=== PATIENT | female | born 1950 | race Caucasian/White ===

== ENCOUNTER 2024-02-29 16:27 | Inpatient (IN) ==
[2024-02-29] MEDS: EPINEPHrine INJ 1 MG/ML AMP IM STA (16:27)
--- NOTE | 2024-02-29 16:36 | Emergency Department Note ---
Impression & Plan Anaphylaxis ED Provider Note NAME: SHANNA KAN AGE: 73 SEX: F : 1950 ARRIVES VIA: Ambulance INFORMANT: Patient ED PROVIDER(S): Deepak Varma DO CHIEF COMPLAINT: Trouble breathing/swallowing HPI: Patient is a 73-year-old female who presents to the ER who presents to the ER for swelling in the back of the throat. Patient was eating oysters around 330. Following this face became red and edematous and swelling in the back of the throat. She notes she is having trouble swallowing and talking. She can feel the swelling in her throat. She also admits that she has a rash on her face. She admits to swelling of her bilateral eyes and cheeks. She received 125 Solu-Medrol, 50 of Benadryl as well as 2 doses of IM epinephrine. She notes it has improved slightly. She denies any headache or change in vision. No chest pain or shortness of breath. No belly pain, nausea vomiting or diarrhea. No dysuria urgency or frequency. No other exacerbating or remitting factors. ADDITIONAL HISTORY OBTAINED: Per HPI Chronic Medical/Social Conditions Affecting Care: Per HPI PAST MEDICAL HISTORY:See Below PAST SURGICAL HISTORY:See Below FAMILY HISTORY:See Below SOCIAL HISTORY:See Below HOME MEDICATIONS:See Below ALLERGIES:See Below VITALS:See Below PHYSICAL EXAMINATION: GENERAL: Sitting up in bed, alert, in moderate distress having trouble talking FACE: Erythema of the bilateral eyes in combination with erythema throughout her face and neck EYE EXAM: normal conjunctiva. PERRL and EOM's grossly intact. OROPHARYNX: no exudate, no erythema, lips, watery edema in the posterior pharynx including the soft palate with a hoarse voice NECK: supple, no nuchal rigidity, no adenopathy, non-tender, no stridor LUNGS: Clear to auscultation. Normal chest wall mechanics HEART: no murmurs, S1 normal and S2 normal ABDOMEN: abdomen soft, non-tender, normo-active bowel sounds, no masses, no rebound or guarding. UPPER EXTREMITIES: upper extremities are grossly normal. LOWER EXTREMITIES: No pitting edema. NEURO EXAM: Normal sensorium, cranial nerves II-XII grossly intact, normal speech, no gross weakness of arms, no gross weakness of legs. MEDICAL DECISION MAKING: Patient is a 73-year-old female who presents to the ER with past medical history of hyperlipidemia and diabetes for trouble breathing swallowing and talking. She had an oyster around 330 and this occurred. She received 2 separate doses of IM epinephrine prior to arrival in combination with 125 Solu-Medrol and 50 of Benadryl which was given orally. Upon my evaluation she was still having trouble breathing and talking and had a noticeably hoarse voice with a fair amount of edema in the posterior soft palate. Additional IM epinephrine was given and the rash on the face improved slightly. Following this she was started on IV epinephrine drip. Patient was also given racemic epinephrine as well as 10 of Decadron and IV Benadryl in combination with Pepcid. After close monitoring her symptoms gradually improved and resolved. She was titrated down to half dose of her epinephrine and this was eventually titrated off. She was monitored closely in B1. She was discussed with the hospitalist as well as the business manager and will be admitted for observation. She had normal phonation upon admission with resolution of the rash on the face and chest but still has some mild watery edema in the posterior pharynx Consults/Care Managements Discussions: Per [facility] Triage Nursing notes reviewed. Limited review of prior medical records performed Vital Signs: reviewed and remarkable for no significant abnormalities Differential diagnosis: Allergic reaction, anaphylaxis, urticaria, [place]-Ousmane syndrome, toxic epidermal necrolysis, erythema multiforme, contact dermatitis, cellulitis, as well as other pathologies. ER treatment provided: See below Diagnostics interpreted by me include EKG and cardiac monitoring as listed below: -Cardiac Monitoring: An order was placed for continuous cardiac monitoring. The monitor shows a rate of 101 with sinus rhythm. -ECG: Sinus rhythm rate of 99 Left axis No PVCs QTc 477 -Laboratory studies:Interpreted by me as stated above in MDM and shown below. Imaging studies: Xrays: As interpreted by me: Portable AP upright 1 view of the chest shows no focal infiltrate CTs show: none Procedures:none Critical Care: I have personally spent 75 minutes of critical care time in the direct management of this patient. This includes bedside care, interpretation of diagnostic studies, and testing, discussion with consultants, patient, and family members, and other required patient management activities. This 75 minutes is in excess of all separately billable procedures. 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 Beliefs That Will Affect Care: None Current Living Situation: Alone Other Information That Helps Us Care for You: No Feels Safe at Home: Yes Safety Concerns: Feels Safe At This Time Assistive Devices: Glasses Allergies Allergies Allergy/AdvReac Type Severity Reaction Status Date / Time oyster extract Allergy Severe Anaphylaxis Verified 02/29/24 17:25 dicyclomine AdvReac Unknown Abdominal Verified 02/29/24 17:25 Pain minocycline AdvReac Unknown Headache Verified 02/29/24 17:25 omeprazole [From Prilosec] AdvReac Unknown Unknown Verified 02/29/24 17:25 venlafaxine [From Effexor] AdvReac Unknown Palpitation Verified 02/29/24 18:13 s Home Meds Home Medications Medication Instructions Recorded Confirmed cholecalciferol (vitamin D3) 50 50 mcg PO DAILY 02/29/24 02/29/24 mcg (2,000 unit) tablet (Vitamin D3) cholecalciferol (vitamin D3) 50 50 mcg PO DAILY 02/29/24 02/29/24 mcg (2,000 unit) tablet (Vitamin D3) citalopram 20 mg tablet 20 mg PO DAILY 02/29/24 02/29/24 coQ10 (ubiquinol) 200 mg capsule 200 mg PO DAILY 02/29/24 02/29/24 coenzyme Q10 100 mg capsule (Co 100 mg PO DAILY 02/29/24 02/29/24 Q-10) gabapentin 100 mg capsule 100 mg PO HS 02/29/24 02/29/24 gabapentin 100 mg capsule 100 mg PO HS 02/29/24 02/29/24 metformin 500 mg tablet,extended 500 mg PO DAILY 02/29/24 02/29/24 release 24 hr multivitamin 1 tab PO DAILY 02/29/24 02/29/24 multivitamin (Multiple Vitamins 1 tab PO DAILY 02/29/24 02/29/24 tablet) simvastatin 20 mg tablet 20 mg PO HS 02/29/24 02/29/24 vitamin A-vitamin C-vitamin E 1 tab PO HS 02/29/24 02/29/24 Results & Data (ED) Vital Signs Vital Signs - 24 hr 02/29/24 16:39 02/29/24 16:39 02/29/24 16:49 Pulse Rate 94 H 98 H Pulse Rate [Apical] Pulse Rhythm [Apical] Pulse Strength [Apical] Respiratory Rate 14 Respiratory Effort / Characteristics Short of Breath Respiratory Depth Normal Respiratory Pattern Regular Blood Pressure 154/83 H Blood Pressure [Right Arm] Blood Pressure Mean 106 Blood Pressure Mean [Right Arm] Blood Pressure Position [Right Arm] Pulse Oximetry 100 Oxygen Delivery Method Room Air Oxygen Flow Rate Sepsis Recent Fever Within 48 Hours No Sepsis New/Unexplained Change in Mental Status No Sepsis Action Taken by Nursing No Action Required 02/29/24 16:52 02/29/24 16:57 02/29/24 17:01 Pulse Rate Pulse Rate [Apical] 101 H 99 H 99 H Pulse Rhythm [Apical] Regular Regular Pulse Strength [Apical] Normal Respiratory Rate 20 19 20 Respiratory Effort / Characteristics Spontaneous Non-Labored Spontaneous Spontaneous Respiratory Depth Normal Normal Respiratory Pattern Regular Regular Blood Pressure Blood Pressure [Right Arm] 164/76 H 166/76 H Blood Pressure Mean Blood Pressure Mean [Right Arm] 105 106 Blood Pressure Position [Right Arm] Pulse Oximetry 100 99 100 Oxygen Delivery Method Nebulizer Room Air Nebulizer Oxygen Flow Rate 7 7 Sepsis Recent Fever Within 48 Hours Sepsis New/Unexplained Change in Mental Status Sepsis Action Taken by Nursing 02/29/24 17:06 02/29/24 17:11 02/29/24 17:17 Pulse Rate Pulse Rate [Apical] 95 H 98 H 97 H Pulse Rhythm [Apical] Regular Regular Regular Pulse Strength [Apical] Normal Normal Normal Respiratory Rate 19 20 18 Respiratory Effort / Characteristics Non-Labored Spontaneous Non-Labored Spontaneous Non-Labored Spontaneous Respiratory Depth Normal Normal Normal Respiratory Pattern Regular Regular Regular Blood Pressure Blood Pressure [Right Arm] 157/74 H 148/77 H 151/74 H Blood Pressure Mean Blood Pressure Mean [Right Arm] 101 100 99 Blood Pressure Position [Right Arm] Pulse Oximetry 100 100 100 Oxygen Delivery Method Nebulizer Nebulizer Nebulizer Oxygen Flow Rate 7 7 7 Sepsis Recent Fever Within 48 Hours Sepsis New/Unexplained Change in Mental Status Sepsis Action Taken by Nursing 02/29/24 17:20 02/29/24 17:25 02/29/24 17:30 Pulse Rate Pulse Rate [Apical] 95 H 95 H 99 H Pulse Rhythm [Apical] Regular Pulse Strength [Apical] Normal Respiratory Rate 18 16 18 Respiratory Effort / Characteristics Non-Labored Spontaneous Non-Labored Spontaneous Non-Labored Spontaneous Respiratory Depth Normal Normal Normal Respiratory Pattern Regular Regular Blood Pressure Blood Pressure [Right Arm] 139/71 141/69 H 131/67 Blood Pressure Mean Blood Pressure Mean [Right Arm] 93 93 88 Blood Pressure Position [Right Arm] Pulse Oximetry 100 100 100 Oxygen Delivery Method Nebulizer Nebulizer Nebulizer Oxygen Flow Rate 7 7 7 Sepsis Recent Fever Within 48 Hours Sepsis New/Unexplained Change in Mental Status Sepsis Action Taken by Nursing 02/29/24 17:35 02/29/24 17:40 02/29/24 17:46 Pulse Rate Pulse Rate [Apical] 100 H 98 H 101 H Pulse Rhythm [Apical] Pulse Strength [Apical] Respiratory Rate 16 16 18 Respiratory Effort / Characteristics Non-Labored Spontaneous Non-Labored Spontaneous Non-Labored Spontaneous Respiratory Depth Normal Normal Normal Respiratory Pattern Regular Blood Pressure Blood Pressure [Right Arm] 141/73 H 123/66 136/73 Blood Pressure Mean Blood Pressure Mean [Right Arm] 95 85 94 Blood Pressure Position [Right Arm] Lying Sitting Pulse Oximetry 100 100 100 Oxygen Delivery Method Room Air Room Air Nebulizer Oxygen Flow Rate 7 Sepsis Recent Fever Within 48 Hours Sepsis New/Unexplained Change in Mental Status Sepsis Action Taken by Nursing 02/29/24 18:10 Pulse Rate Pulse Rate [Apical] 101 H Pulse Rhythm [Apical] Regular Pulse Strength [Apical] Respiratory Rate 18 Respiratory Effort / Characteristics Non-Labored Spontaneous Respiratory Depth Normal Respiratory Pattern Regular Blood Pressure Blood Pressure [Right Arm] 138/74 Blood Pressure Mean Blood Pressure Mean [Right Arm] 95 Blood Pressure Position [Right Arm] Pulse Oximetry 99 Oxygen Delivery Method Room Air Oxygen Flow Rate Sepsis Recent Fever Within 48 Hours Sepsis New/Unexplained Change in Mental Status Sepsis Action Taken by Nursing Laboratory Data 02/29/24 16:30 02/29/24 16:30 Lab Results 02/29/24 Range/Units 16:30 WBC 9.56 (4.8-10.8) K/ul RBC 4.64 (4.20-5.40) M/uL Hgb 14.3 (12.0-16.0) g/dl Hct 42.6 (37.0-47.0) % MCV 91.8 (80.0-100.0) fL MCH 30.8 (25.0-34.0) pg MCHC 33.6 (32.0-36.0) g/dL RDW Std Deviation 46.5 H (36.4-46.3) fL RDW Coeff of Perico 13.7 (11.5-14.5) % Plt Count 290 (130-400) K/uL MPV 9.6 (9.4-12.4) fL Neutrophils % (Manual) 43 % Lymphocytes % (Manual) 49 % Monocytes % (Manual) 6 % Eosinophils % (Manual) 1 % Basophils % (Manual) 1 % Neutrophils # (Manual) 4.11 (1.40-6.50) K/uL Total Absolute Neuts 4.11 (1.4-6.5) K/uL Lymphocytes # (Manual) 4.68 H (1.2-3.4) K/uL Total Abs Lymphocytes 4.68 H (1.2-3.4) K/uL Monocytes # (Manual) 0.57 (0.11-0.59) K/uL Eosinophils # (Manual) 0.10 (0-0.50) K/uL Basophils # (Manual) 0.10 (0-0.2) K/uL RBC Morphology Unremarkable Sodium 137 (136-145) mmol/L Potassium 3.4 L (3.5-5.1) mmol/L Chloride 100 (98-107) mmol/L Carbon Dioxide 27 (21-32) mmol/L Anion Gap 10 (3-11) BUN 44 H (6-23) mg/dl Creatinine 1.01 (0.6-1.2) mg/dl Est Cr Clr Drug Dosing 46.0 ml/min eGFR 58.42 BUN/Creatinine Ratio 43.6 H (10-20) Glucose 170 H (70-99(Fasting)) mg/dl Calcium 9.7 (8.6-10.3) mg/dl Total Bilirubin 0.4 (0.2-1.0) mg/dl AST 24 (13-39) U/L ALT 15 (7-52) U/L Alkaline Phosphatase 47 (34-104) U/L Troponin I High Sens 3.3 (0-14) pg/ml Total Protein 6.9 (6.0-8.3) gm/dl Albumin 4.4 (3.4-5.0) gm/dl Globulin 2.5 (2.5-4.0) gm/dl Albumin/Globulin Ratio 1.8 (0.9-2) Lipase 45 (11-82) U/L Administered Medications Albuterol (Albuterol 0.083% Nebu Soln 3 Ml Vial) 2.5 mg NEB Q6R MEREDITH; Protocol Stop: 03/30/24 20:29 Last Admin: 02/29/24 20:20 Dose: 2.5 mg Documented By: LGB Diphenhydramine HCl (Diphenhydramine 50 Mg/Ml Vial) 25 mg IV Q6H PRN PRN Reason: hives Stop: 03/30/24 17:58 Last Admin: 02/29/24 19:43 Dose: 25 mg Documented By: CP Gabapentin (Gabapentin 100 Mg Cap) 100 mg PO HS MEREDITH Stop: 03/30/24 20:59 Last Admin: 02/29/24 20:39 Dose: 100 mg Documented By: CP Heparin Sodium (Porcine) (Heparin Sod 5,000 Unit/0.5 Ml Vial) 5,000 units SQ Q12 MEREDITH Stop: 03/30/24 20:59 Last Admin: 02/29/24 20:46 Dose: 5,000 units Documented By: CP Famotidine (Pepcid 20mg Iv Push) 20 mg in 5 mls @ 2.5 mls/min IV Q12H MEREDITH Stop: 03/30/24 18:29 Last Admin: 02/29/24 18:27 Dose: 2.5 mls/min Documented By: NA Potassium Chloride/Sodium Chloride (Normal Saline W/20 Meq Kcl) 20 meq in 1,000 mls @ 100 mls/hr IV .Q10H MEREDITH Stop: 03/02/24 00:29 Last Admin: 02/29/24 18:40 Dose: 100 mls/hr Documented By: NA Simvastatin (Simvastatin 20 Mg Tab) 20 mg PO HS MEREDITH Stop: 03/30/24 20:59 Last Admin: 02/29/24 20:40 Dose: 20 mg Documented By: CP Discontinued Medications Albuterol (Albuterol 0.083% Nebu Soln 3 Ml Vial) 5 mg NEB NOW STA; Protocol Stop: 02/29/24 16:36 Last Admin: 02/29/24 16:47 Dose: 5 mg Documented By: NA Dexamethasone Sodium Phosphate (DexamethasonePf 10 Mg/Ml Vial) 10 mg IV NOW ONE Stop: 02/29/24 16:33 Last Admin: 02/29/24 16:43 Dose: 10 mg Documented By: NA Diphenhydramine HCl (Diphenhydramine 50 Mg/Ml Vial) 12.5 mg IV NOW STA Stop: 02/29/24 16:35 Last Admin: 02/29/24 16:43 Dose: 12.5 mg Documented By: NIGHAT Epinephrine (Racepinephrine 2.25% Nebu Soln 0.5 Ml Vial) 0.5 ml NEB NOW STA Stop: 02/29/24 16:37 Last Admin: 02/29/24 16:51 Dose: 0.5 ml Documented By: NIGHAT Epinephrine HCl (Epinephrine Inj 1 Mg/Ml Amp) 0.3 mg IM NOW STA Stop: 02/29/24 16:36 Last Admin: 02/29/24 16:27 Dose: 0.3 mg Documented By: NIGHAT Famotidine (Pepcid 20mg Iv Push) 20 mg in 5 mls @ 2.5 mls/min IV NOW STA Stop: 02/29/24 16:33 Last Admin: 02/29/24 16:47 Dose: 2.5 mls/min Documented By: NIGHAT Epinephrine HCl () 4 mg in 254 mls @ 26.861 mls/hr IV .Q9H28M [facility]; Protocol Stop: 03/30/24 16:59 Last Titration: 02/29/24 20:24 Dose: Infused Documented By: Titration: 02/29/24 17:38 Dose: 0 mcg/kg/min, 0 mls/hr Documented By: Titration: 02/29/24 17:15 Dose: 0.05 mcg/kg/min, 13.4 mls/hr Documented By: Admin: 02/29/24 16:42 Dose: 0.1 mcg/kg/min, 26.9 mls/hr Documented By: NIGHAT Co-signed By: BRE Influenza Virus Vacc Triv Types A&B (Influenza Vacc So2173-75(65y+)/Pf (Iiv3) 0.5ml Syr) 0.5 ml IM .ONCE ONE Stop: 02/29/24 20:01 Last Admin: 02/29/24 20:24 Dose: Not Given Documented By: CP Imaging Data Radiologist's Impression: Chest X-Ray 02/29/24 16:34 XR chest 1V portable CLINICAL HISTORY: Chest pain, nonspecific TECHNIQUE: Single frontal radiograph of the chest was obtained. Comparison: None available at the time of this dictation. FINDINGS: No lines and tubes are seen. Calcified aortic knob is seen. The lungs are clear. No evidence of pleural effusion or pneumothorax. IMPRESSION: No acute chest disease. ACT 112: Negative or not required by law. Electronically signed by: Channing Arriaza M.D. 02/29/2024 5:06 PM Discharge Plan Visit Data Chief Complaint: Allergic Reaction ED Provider: Deepak Varma Discharge Problem: Anaphylaxis Patient Disposition: Admitted As Inpatient Discharge Instructions Interventions: ED Discharge Assessment Last Done: 02/29/24 19:13 Discharge Problem: Anaphylaxis Qualifiers: Encounter type: initial encounter Qualified Code(s): T78.2XXA - Anaphylactic shock, unspecified, initial encounter
[2024-02-29] MEDS: Standard Conc; 4 MG in 250 mL for HYPOTENSION IV SCH (16:42)
[2024-02-29] MEDS: diphenhydrAMINE 50 MG/ML VIAL IV STA (16:43)
[2024-02-29] MEDS: dexAMETHasone**PF** 10 MG/ML VIAL IV ONE (16:43)
[2024-02-29] MEDS: FAMOTIDINE 20MG IV PUSH 20 MG/5 ML SYR IV STA (16:47)
[2024-02-29] MEDS: ALBUTEROL 0.083% NEBU SOLN 3 ML VIAL NEB STA (16:47)
[2024-02-29] MEDS: RACEPINEPHRINE 2.25% NEBU SOLN 0.5 ML VIAL NEB STA (16:51)
[2024-02-29 16:57] LABS: Hematocrit (blood only) 42.6 % (37.0-47.0); Hemoglobin 14.3 g/dl (12.0-16.0); Mean Corpuscular Hemoglobin 30.8 pg (25.0-34.0); Mean Corpuscular Hgb Conc 33.6 g/dL (32.0-36.0); Mean Corpuscular Volume 91.8 fL (80.0-100.0); Mean Platelet Volume 9.6 fL (9.4-12.4); Platelet Count 290 K/uL (130-400); RDW Coefficient of Variation 13.7 % (11.5-14.5); RDW Standard Deviation 46.5 fL (36.4-46.3); Red Blood Count 4.64 M/uL (4.20-5.40); White Blood Count 9.56 K/ul (4.8-10.8)
--- NOTE | 2024-02-29 17:07 | XRay Report ---
XR chest 1V portable CLINICAL HISTORY: Chest pain, nonspecific TECHNIQUE: Single frontal radiograph of the chest was obtained. Comparison: None available at the time of this dictation. FINDINGS: No lines and tubes are seen. Calcified aortic knob is seen. The lungs are clear. No evidence of pleur al effusion or pneumothorax. IMPRESSION: No acute chest disease. ACT 112: Negative or not required by law. Electronically signed by: Channing Arriaza M.D. 02/29/2024 5:06 PM
[2024-02-29 17:16] LABS: Albumin Globulin Ratio 1.8 (0.9-2); Albumin Level 4.4 gm/dl (3.4-5.0); BUN Creatinine Ratio 43.6 (10-20); Bilirubin,Total 0.4 mg/dl (0.2-1.0); Calcium 9.7 mg/dl (8.6-10.3); Globulin 2.5 gm/dl (2.5-4.0); Potassium 3.4 mmol/L (3.5-5.1); Total Protein 6.9 gm/dl (6.0-8.3)
[2024-02-29 17:21] LABS: Troponin I High Sensitivity 3.3 pg/ml (0-14)
[2024-02-29 17:47] LABS: ALC (manual) 4.68 K/uL (1.2-3.4); ANC (manual) 4.11 K/uL (1.4-6.5); Basophils % (manual) 1 %; Eosinophils % (manual) 1 %; Lymphocytes # (manual) 4.68 K/uL (1.2-3.4); Lymphocytes % (manual) 49 %; Monocytes # (manual) 0.57 K/uL (0.11-0.59); Monocytes % (manual) 6 %; Neutrophils # (manual) 4.11 K/uL (1.40-6.50); Neutrophils % (manual) 43 %; RBC Morphology Unremarkable
[2024-02-29] MEDS ORDERED: ALBUTEROL 0.083% NEBU SOLN 3 ML VIAL NEB PRN (17:59)
--- NOTE | 2024-02-29 18:17 | History & Physical Report ---
Date of Service February 29, 2024 Assessment & Plan (1) Anaphylaxis: Plan: Anaphylaxis due to oyster consumption Admitted with throat swelling, swelling of the whole face and difficulty with breathing Required multiple doses of IM epinephrine and also Epinephrine drip, intravenous steroid and Benadryl to improve the situation Condition improved while in the emergency room and Epinephrine drip was discontinued after about 30 minutes Will admit the patient to ICU for observation Received a total of Solu-Medrol 125 mg x 2 and Decadron 10 mg x 1 intravenously. Will continue with IV Benadryl as needed, intravenous famotidine and nebulized bronchodilator for now She will likely be transferred out of ICU tomorrow morning (2) Hyperlipidemia: Plan: Continue statin (3) Depression: Plan: Continue Celexa (4) Sleep apnea: Plan: History of sleep apnea and does not use any CPAP and BiPAP She is not sure whether she has CLL or not White count is normal Plan DVT prophylaxis Subcu heparin CODE STATUS Full Total time spent in patient care including communication with the Family members,occupational safety specialist and ER physician. History of Present Illness Chief Complaint: Anaphylaxis secondary to moisture extract with shortness of breath, generalized hives with swelling of the face this evening Primary Care Provider: Timothy Han MD She is a 73-year-old female with significant past medical history of aortic regurgitation, CLL, hyperlipidemia and depression apparently was having supper at the [employer] [facility] this evening. She had an Oyster dish and following 10 minutes of having the Oyster she started to feel swelling in the back of her throat, she tried to drink water without any relief. Axilla within 10 minutes the condition got worse and was associated with generalized hives with itchiness and more swelling in the throat and swelling of the whole of the face and that extended it was hard for her to breath. 911 was called and she was brought into the emergency room. On the way she received IM epinephrine x 2, intravenous Solu-Medrol 125 mg each and and also nebulized bronchodilatos. In the ER she was still edematous and short of breath and she required additional doses of IM epinephrine and started with intravenous infusion of epinephrine and 0.1 mg. She received 10 IV Decadron of 10 mg and also received famotidine and Benadryl intravenously. When I saw her condition is improving and she was talking normally did have minimal proximal swelling but no shortness of breath at rest and are swelling of the face has been improving. Her generalized hives and itchiness have improved as well. He remained hemodynamically stable and will be admitted to ICU for observation. Allergies Allergy/AdvReac Type Severity Reaction Status Date / Time oyster extract Allergy Severe Anaphylaxis Verified 02/29/24 17:25 dicyclomine AdvReac Unknown Abdominal Verified 02/29/24 17:25 Pain minocycline AdvReac Unknown Headache Verified 02/29/24 17:25 omeprazole [From Prilosec] AdvReac Unknown Unknown Verified 02/29/24 17:25 venlafaxine [From Effexor] AdvReac Unknown Palpitation Verified 02/29/24 18:13 s Home Medications Medication Instructions Recorded Confirmed Type cholecalciferol (vitamin D3) 50 50 mcg PO DAILY 02/29/24 02/29/24 History mcg (2,000 unit) tablet (Vitamin D3) cholecalciferol (vitamin D3) 50 50 mcg PO DAILY 02/29/24 02/29/24 History mcg (2,000 unit) tablet (Vitamin D3) citalopram 20 mg tablet 20 mg PO DAILY 02/29/24 02/29/24 History coQ10 (ubiquinol) 200 mg capsule 200 mg PO DAILY 02/29/24 02/29/24 History coenzyme Q10 100 mg capsule (Co 100 mg PO DAILY 02/29/24 02/29/24 History Q-10) gabapentin 100 mg capsule 100 mg PO HS 02/29/24 02/29/24 History gabapentin 100 mg capsule 100 mg PO HS 02/29/24 02/29/24 History metformin 500 mg tablet,extended 500 mg PO DAILY 02/29/24 02/29/24 History release 24 hr multivitamin 1 tab PO DAILY 02/29/24 02/29/24 History multivitamin (Multiple Vitamins 1 tab PO DAILY 02/29/24 02/29/24 History tablet) simvastatin 20 mg tablet 20 mg PO HS 02/29/24 02/29/24 History vitamin A-vitamin C-vitamin E 1 tab PO HS 02/29/24 02/29/24 History Past Med/Surg History Problem List (Updated 02/29/24 @ 21:11 by Deepak Varma DO) DMII (diabetes mellitus, type 2) Sleep apnea Hyperlipidemia Anaphylaxis (Acute) Medical History (Updated 02/29/24 @ 21:11 by Deepak Varma DO) Bronchitis CLL (chronic lymphocytic leukemia) Neuropathy associated with endocrine disorder Aortic regurgitation Depression Social History Smoking Status: Unknown if ever smoked Tobacco Type: Cigarettes Hx Alcohol Use: No Hx Substance Use: No Preferred Language: Setswana Communication Ability: Effective Director Operating Room Required: No Beliefs That Will Affect Care: None Current Living Situation: Alone Other Information That Helps Us Care for You: No Feels Safe at Home: Yes Safety Concerns: Feels Safe At This Time Assistive Devices: Glasses Review of Systems Review of Systems: All systems reviewed and are unremarkable except as noted below patient here Physical Exam Physical Exam: Lying in bed without any apparent distress but looks anxious Constitutional: well developed, well nourished and + ill appearing Eyes: Eyelids that is still swollen but can open the eyes without any problem Neck: trachea midline, no thyromegaly Respiratory: no respiratory distress Auscultation: + diminished lung sounds and + wheezes (Minimal to no wheezing) Cardiovascular: Rate/Rhythm: regular rate, regular rhythm and + tachycardic Heart Sounds: normal S1, normal S2 and + murmur Extremities: no edema Gastrointestinal (Abdomen): Inspection/Auscultation: normal bowel sounds; abdomen not distended Percussion/Palpation: abdomen soft; abdomen nontender Musculoskeletal: No acute arthritis involving any of the joint Skin: Minimal redness involving the upper extremities and trunk but no definite hives Neurologic: normal touch/pain/proprioception and moves all extremities; no focal motor deficits Lymphatic: no cervical or axillary lymphadenopathy Results & Data Results & Data Vital Signs (Past 12 Hours) Vital Signs Pulse Pulse Resp BP BP Pulse Ox O2 Del Method 02/29/24 17:46 101 H 18 136/73 100 Nebulizer 02/29/24 17:40 98 H 16 123/66 100 Room Air 02/29/24 17:35 100 H 16 141/73 H 100 Room Air 02/29/24 17:30 99 H 18 131/67 100 Nebulizer 02/29/24 17:25 95 H 16 141/69 H 100 Nebulizer 02/29/24 17:20 95 H 18 139/71 100 Nebulizer 02/29/24 17:17 97 H 18 151/74 H 100 Nebulizer 02/29/24 17:11 98 H 20 148/77 H 100 Nebulizer 02/29/24 17:06 95 H 19 157/74 H 100 Nebulizer 02/29/24 17:01 99 H 20 166/76 H 100 Nebulizer 02/29/24 16:57 99 H 19 99 Room Air 02/29/24 16:52 101 H 20 164/76 H 100 Nebulizer 02/29/24 16:49 98 H 02/29/24 16:39 94 H 14 154/83 H 100 Room Air O2 Flow Rate 02/29/24 17:46 7 02/29/24 17:40 02/29/24 17:35 02/29/24 17:30 7 02/29/24 17:25 7 02/29/24 17:20 7 02/29/24 17:17 7 02/29/24 17:11 7 02/29/24 17:06 7 02/29/24 17:01 7 02/29/24 16:57 02/29/24 16:52 7 02/29/24 16:49 02/29/24 16:39 Laboratory Results Short CBC 02/29/24 Range/Units 16:30 WBC 9.56 (4.8-10.8) K/ul Hgb 14.3 (12.0-16.0) g/dl Hct 42.6 (37.0-47.0) % Plt Count 290 (130-400) K/uL BMP 02/29/24 16:30 Sodium 137 Potassium 3.4 L Chloride 100 Carbon Dioxide 27 BUN 44 H Creatinine 1.01 Glucose 170 H Calcium 9.7 Liver Function 02/29/24 Range/Units 16:30 Total Bilirubin 0.4 (0.2-1.0) mg/dl AST 24 (13-39) U/L ALT 15 (7-52) U/L Alkaline Phosphatase 47 (34-104) U/L Albumin 4.4 (3.4-5.0) gm/dl Medications Administered Current Inpatient Medications Albuterol (Albuterol 0.083% Nebu Soln 3 Ml Vial) 2.5 mg NEB Q6H PRN; Protocol PRN Reason: Shortness Of Breath Or Wheezing Stop: 03/30/24 17:58 Diphenhydramine HCl (Diphenhydramine 50 Mg/Ml Vial) 25 mg IV Q6H PRN PRN Reason: hives Stop: 03/30/24 17:58 Epinephrine HCl () 4 mg in 254 mls @ 26.861 mls/hr IV .Q9H28M MEREDITH; Protocol Stop: 03/30/24 16:59 Last Titration: 02/29/24 17:38 Dose: 0 mcg/kg/min, 0 mls/hr Famotidine (Pepcid 20mg Iv Push) 20 mg in 5 mls @ 2.5 mls/min IV Q12H MEREDITH Stop: 03/30/24 17:59
[2024-02-29] MEDS: FAMOTIDINE 20MG IV PUSH 20 MG/5 ML SYR IV SCH (18:27)
[2024-02-29] MEDS: NSS + 20MEQ KCL 20 MEQ/1,000 ML BAG IV SCH (18:40)
[2024-02-29] MEDS ORDERED: methylPREDNISolone 125 MG/2 ML VIAL IV ONE (19:30)
--- NOTE | 2024-02-29 19:37 | Critical Care Consultation ---
Date of Consultation February 29, 2024 Assessment & Plan (1) Anaphylaxis: (2) DMII (diabetes mellitus, type 2): Plan Reason Critically Ill: 73 YOF with anaphylactic reaction to presumed oyster ingestion, requiring 3 IM injections of epinephrine, short course of epinephrine infusion, and adjunctive therapies. To ICU to monitor symptoms overnight. Neuro - No acute needs CAM ICU: Negative - Continue Gabapentin for neuropathy - Continue home Celexa Cardiac - Anaphylactic reaction, Hx of Ar, HLD - Patient with anaphylaxis reaction presumed secondary to oysters- she has never had a reaction to any shellfish before and reports only having oysters one other time in her life. -She has received -0.3mg IM epi x3, epi infusion ~15 min, 12.5 Benadryl, 20mg IV Famotidine, Albuterol and Racemic Epinephrine, and 10mg Decadron - Symptoms seem to be improving including her voice and nasal congestion - EpiPen to bedside 0.3-0.5 IM PRN respiratory symptoms or worsening systemic symptoms- epi infusion if needed - She has received 10mg of Decadron already- this should be adequate to cover through morning as well, should also not need taper as it will auto-taper - Continue PRN Benadryl for prurtitis of hands - Scheduled Famotidine - Should be monitored for biphasic reaction - at least until early childhood education instructor - Continue statin Respiratory - As above, Hx Bronchitis, MELODY -Continue Albuterol scheduled for 24 hours q6 hours - She wears dental appliance for her MELODY- does not have with her- consider in house CPAP AutoPap if needed GI - NO acute needs - Diet- Clears advance as tolerated if symptoms improve RENAL/LYTES - No acute needs - ICU electrolyte protocol - No acute needs ENDO - DMII - ICU hyperglycemic protocol with SSI- follow with high dose steroid administration HEME - Hx CLL - She is unsure if she has received treatment for this - WBC unremarkable - Will send tryptase level - Recommend Claims Manager referral upon discharge as well as epinephrine pen at discharge with instructions and observe practice ID - No concerns at this time for infectious etiology LINES/IV ACCESS - PIV -Continue use of these lines DVT PROPHYLAXIS - SCDs, Heparin 5000 units subq q12 DISPO: ICU until biphasic symptoms are monitored and hemodynamics/respiratory status proven stable I have personally spent 45 minutes of care time in the direct management of this patient. This is a life/limb threatening event. This includes time spent evaluating patient, direct bedside care, chart review, placing orders, interpretation of diagnostic studies, discussion with consultants, patient, and family members, as well as other required patient management activities. This time is exclusive of all separately billable procedures, and teaching time and separate from and in addition to any other critical care service time. Thank you for allowing us to participate in the care of this patient. Please refer to my attending physician's documentation for any further recommendations. Supervising Physician Co-Signing Physician Notes Patient seen and examined. EMR reviewed. Discussed with critical care KRISHNA and ER staff as well as with bedside critical care nurse this morning and on multi disciplinary rounds. The patient's issues have resolved. She is required no additional boluses or epinephrine. She feels some mild swelling in her throat and some thickness when she swallows but is not having any voice changes. No itching or rashes. Blood pressures remain stable. Please refer to my progress note from 03/01/2024 for additional details History of Present Illness Reason for Consultation: Anaphylaxis Requesting Physician: Javid Gaspar Attending Physician: Javid Gaspar MD History of Present Illness 73 YOF with medical history of: Aortic Regurge, HLD, Depression/anxiety, chronic bronchitis, DMII, Nueropathy. Patient was brought to the EMD today via EMS after having an allergic reaction this afternoon. Patient reports that she was having an oyster dish at a restaurant, and about 10 minutes after ingestion, she started to feel tickling in the back of her throat. She thought something was stuck, so she went to the bathroom to look in the mirror, during that time she noted that the palms of her hands were itchy and red, her eyes were puffy and watering, increase in sinus drainage with increase and audible wheezing in her chest. She requested EMS- they arrived and gave her a IM injection of Epinephrine which did not immediately improve her symptoms- therefore she received another IM injection and started to feel slightly better. On arrival to the EMD symptoms started to return- she was given another IM injection of 0.3mg of Epinephrine, Albuterol, Decadron 10mg IV, Pepcid, 20mg IV, and 12.5 mg Benadryl, racemic epinephrine nebulizer. She still had some throat tightness by report and was also initiated on an epinephrine infusion, which was also rapidly weaned off once symptoms started to get controlled- duration appears 15min or less. Patient was seen in the EMD by request of Admitting service. She is without wheezing, ithcing, hives, or oxygen need. Request ICU admission for monitoring of symptoms overnight. Patient will be brought to the ICU- continue with H2 blockers, IM epipen at bedside as well. Symptoms appeared to start around 1500 this afternoon. CODE: FULL Allergies Allergy/AdvReac Type Severity Reaction Status Date / Time oyster extract Allergy Severe Anaphylaxis Verified 02/29/24 17:25 dicyclomine AdvReac Unknown Abdominal Verified 02/29/24 17:25 Pain minocycline AdvReac Unknown Headache Verified 02/29/24 17:25 omeprazole [From Prilosec] AdvReac Unknown Unknown Verified 02/29/24 17:25 venlafaxine [From Effexor] AdvReac Unknown Palpitation Verified 02/29/24 18:13 s Home Medications Medication Instructions Recorded Confirmed Type cholecalciferol (vitamin D3) 50 50 mcg PO DAILY 02/29/24 02/29/24 History mcg (2,000 unit) tablet (Vitamin D3) cholecalciferol (vitamin D3) 50 50 mcg PO DAILY 02/29/24 02/29/24 History mcg (2,000 unit) tablet (Vitamin D3) citalopram 20 mg tablet 20 mg PO DAILY 02/29/24 02/29/24 History coQ10 (ubiquinol) 200 mg capsule 200 mg PO DAILY 02/29/24 02/29/24 History coenzyme Q10 100 mg capsule (Co 100 mg PO DAILY 02/29/24 02/29/24 History Q-10) gabapentin 100 mg capsule 100 mg PO HS 02/29/24 02/29/24 History gabapentin 100 mg capsule 100 mg PO HS 02/29/24 02/29/24 History metformin 500 mg tablet,extended 500 mg PO DAILY 02/29/24 02/29/24 History release 24 hr multivitamin 1 tab PO DAILY 02/29/24 02/29/24 History multivitamin (Multiple Vitamins 1 tab PO DAILY 02/29/24 02/29/24 History tablet) simvastatin 20 mg tablet 20 mg PO HS 02/29/24 02/29/24 History vitamin A-vitamin C-vitamin E 1 tab PO HS 02/29/24 02/29/24 History Patient History Medical History (Updated 02/29/24 @ 21:11 by Deepak Varma DO) Bronchitis CLL (chronic lymphocytic leukemia) Neuropathy associated with endocrine disorder Aortic regurgitation Depression Social History Smoking Status: Unknown if ever smoked Tobacco Type: Cigarettes Hx Alcohol Use: No Hx Substance Use: No Preferred Language: Qatari Communication Ability: Effective Agronomy Specialist Required: No Beliefs That Will Affect Care: None Current Living Situation: Alone Other Information That Helps Us Care for You: No Feels Safe at Home: Yes Safety Concerns: Feels Safe At This Time Assistive Devices: Glasses Review of Systems Review of Systems: REVIEW OF SYSTEMS: Constitutional: No fever, sweats or chills Eyes: No diplopia, no worsening or blurred vision ENT: (+) rhinorhea, Muffled Voice, normal hearing, no trouble swallowing Respiratory: (+) wheezing, cough, NO sputum, dyspnea at rest or on exertion Cardiovascular: No chest pain, tightness or palpitations Abdomen: No pain, nausea, vomiting, diarrhea or constipation Musculoskeletal: No joint pain, calf pain, swelling Neurologic: No weakness, numbness/tingling, or balance problems Psychiatric: (+) anxiety/depression Skin: (+) itching of palms of hands, No rashor wheels Physical Exam Physical Exam: PHYSICAL EXAM: General: awake, alert, no apparent distress Head: Normocephalic, atraumatic ENT: PERRLA, EOMI, no pharyngeal exudate, mucous membranes moist Neuro: AAO x 3, speech clear and appropriate, strength intact bilaterally 5/5, no pronator drift Chest: equal rise and fall of the chest, no accessory muscle use, no heaves or thrills, Clear to auscultation, on room air, Cardiac: Regular rate and rhythm, telemetry reviewed- NSR no ectopy, skin warm dry, cap refill <3 seconds, peripheral pulses +2 no JVD, Grade II Diastolic murmur, no JVD, no edema GI: NABS x 4 quadrants, soft, nontender to palpation, no rebound, guarding or tenderness : Spontaneously voiding, no pain, no CVA tenderness, Extremities: Normal inspection, no peripheral edema or erythema, calfs nontender to palpation Psych: Normal mood and affect Skin: no rash or erythema Results & Data Results & Data Vital Signs (Past 12 Hours) Vital Signs Pulse Pulse Resp BP BP Pulse Ox O2 Del Method 02/29/24 18:41 94 H 18 121/72 96 Room Air 02/29/24 18:30 94 H 18 119/70 96 Room Air 02/29/24 18:10 101 H 18 138/74 99 Room Air 02/29/24 17:46 101 H 18 136/73 100 Nebulizer 02/29/24 17:40 98 H 16 123/66 100 Room Air 02/29/24 17:35 100 H 16 141/73 H 100 Room Air 02/29/24 17:30 99 H 18 131/67 100 Nebulizer 02/29/24 17:25 95 H 16 141/69 H 100 Nebulizer 02/29/24 17:20 95 H 18 139/71 100 Nebulizer 02/29/24 17:17 97 H 18 151/74 H 100 Nebulizer 02/29/24 17:11 98 H 20 148/77 H 100 Nebulizer 02/29/24 17:06 95 H 19 157/74 H 100 Nebulizer 02/29/24 17:01 99 H 20 166/76 H 100 Nebulizer 02/29/24 16:57 99 H 19 99 Room Air 02/29/24 16:52 101 H 20 164/76 H 100 Nebulizer 02/29/24 16:49 98 H 02/29/24 16:39 94 H 14 154/83 H 100 Room Air O2 Flow Rate 02/29/24 18:41 02/29/24 18:30 02/29/24 18:10 02/29/24 17:46 7 02/29/24 17:40 02/29/24 17:35 02/29/24 17:30 7 02/29/24 17:25 7 02/29/24 17:20 7 02/29/24 17:17 7 02/29/24 17:11 7 02/29/24 17:06 7 02/29/24 17:01 7 02/29/24 16:57 02/29/24 16:52 7 02/29/24 16:49 02/29/24 16:39 Laboratory Results Abnormal lab results 02/29/24 Range/Units 16:30 RDW Std Deviation 46.5 H (36.4-46.3) fL Lymphocytes # (Manual) 4.68 H (1.2-3.4) K/uL Total Abs Lymphocytes 4.68 H (1.2-3.4) K/uL Potassium 3.4 L (3.5-5.1) mmol/L BUN 44 H (6-23) mg/dl BUN/Creatinine Ratio 43.6 H (10-20) Glucose 170 H (70-99(Fasting)) mg/dl Diagnostic Findings Chest X-Ray 02/29/24 16:34 XR chest 1V portable CLINICAL HISTORY: Chest pain, nonspecific TECHNIQUE: Single frontal radiograph of the chest was obtained. Comparison: None available at the time of this dictation. FINDINGS: No lines and tubes are seen. Calcified aortic knob is seen. The lungs are clear. No evidence of pleural effusion or pneumothorax. IMPRESSION: No acute chest disease. ACT 112: Negative or not required by law. Electronically signed by: Channing Arriaza M.D. 02/29/2024 5:06 PM Medications Administered Home Medications cholecalciferol (vitamin D3) 50 mcg (2,000 unit) tablet (Vitamin D3) 50 mcg PO DAILY 02/29/24 [History Confirmed 02/29/24] cholecalciferol (vitamin D3) 50 mcg (2,000 unit) tablet (Vitamin D3) 50 mcg PO DAILY 02/29/24 [History Confirmed 02/29/24] citalopram 20 mg tablet 20 mg PO DAILY 02/29/24 [History Confirmed 02/29/24] coQ10 (ubiquinol) 200 mg capsule 200 mg PO DAILY 02/29/24 [History Confirmed 02/29/24] coenzyme Q10 100 mg capsule (Co Q-10) 100 mg PO DAILY 02/29/24 [History Confirmed 02/29/24] gabapentin 100 mg capsule 100 mg PO HS 02/29/24 [History Confirmed 02/29/24] gabapentin 100 mg capsule 100 mg PO HS 02/29/24 [History Confirmed 02/29/24] metformin 500 mg tablet,extended release 24 hr 500 mg PO DAILY 02/29/24 [History Confirmed 02/29/24] multivitamin 1 tab PO DAILY 02/29/24 [History Confirmed 02/29/24] multivitamin (Multiple Vitamins tablet) 1 tab PO DAILY 02/29/24 [History Confirmed 02/29/24] simvastatin 20 mg tablet 20 mg PO HS 02/29/24 [History Confirmed 02/29/24] vitamin A-vitamin C-vitamin E 1 tab PO HS 02/29/24 [History Confirmed 02/29/24] Active Medications Albuterol (Albuterol 0.083% Nebu Soln 3 Ml Vial) 2.5 mg NEB Q6H PRN; Protocol PRN Reason: Shortness Of Breath Or Wheezing Stop: 03/30/24 17:58 Diphenhydramine HCl (Diphenhydramine 50 Mg/Ml Vial) 25 mg IV Q6H PRN PRN Reason: hives Stop: 03/30/24 17:58 Heparin Sodium (Porcine) (Heparin Sod 5,000 Unit/0.5 Ml Vial) 5,000 units SQ Q1 2 MEREDITH Stop: 03/30/24 20:59 Epinephrine HCl () 4 mg in 254 mls @ 26.861 mls/hr IV .Q9H28M MEREDITH; Protocol Stop: 03/30/24 16:59 Last Titration: 02/29/24 17:38 Dose: 0 mcg/kg/min, 0 mls/hr Famotidine (Pepcid 20mg Iv Push) 20 mg in 5 mls @ 2.5 mls/min IV Q12H MEREDITH Stop: 03/30/24 18:29 Last Admin: 02/29/24 18:27 Dose: 2.5 mls/min Potassium Chloride/Sodium Chloride (Normal Saline W/20 Meq Kcl) 20 meq in 1,000 mls @ 100 mls/hr IV .Q10H MEREDITH Stop: 03/02/24 00:29 Last Admin: 02/29/24 18:40 Dose: 100 mls/hr ECG Additional Comments: Normal sinus rhythm Left axis deviation Abnormal ECG No previous ECGs available Coding Level of Care Code 39433 IN/OBS CONSULT LVL 3,45M Diagnoses Anaphylaxis T78.2XXA DMII (diabetes mellitus, type 2) E11.9
[2024-02-29] MEDS ORDERED: EPINEPHrine INJ 1 MG/ML AMP IM PRN (19:39)
[2024-02-29] MEDS: diphenhydrAMINE 50 MG/ML VIAL IV PRN (19:43)
[2024-02-29] MEDS: ALBUTEROL 0.083% NEBU SOLN 3 ML VIAL NEB SCH (20:20)
[2024-02-29] MEDS: INFLUENZA VACC TS2024-25(65y+)/PF (IIV3) 0.5mL Syr IM ONE (20:24)
[2024-02-29] MEDS: GABAPENTIN 100 MG CAP PO SCH (20:39)
[2024-02-29] MEDS: SIMVASTATIN 20 MG TAB PO SCH (20:40)
[2024-02-29] MEDS: HEPARIN SOD 5,000 UNIT/0.5 ML VIAL SQ SCH (20:46)
[2024-02-29] MEDS ORDERED: GLUCOSE 10 TAB/TUBE PO PRN (20:47)
[2024-02-29] MEDS ORDERED: DEXTROSE 50% 50 ML SYRINGE IV PRN (20:47)
[2024-02-29] MEDS ORDERED: CARBOHYDRATES FOR HYPOGLYCEMIA PO PRN (20:47)
[2024-02-29] MEDS ORDERED: GLUCOSE 40% GEL 15 GM TUBE PO PRN (20:47)
[2024-02-29] MEDS ORDERED: GLUCAGON FOR INJ 1 MG VIAL SQ PRN (20:47)
[2024-02-29] MEDS: ICU Protocol for HYPERglycemia SCH (21:37)
[2024-02-29] MEDS: INSULIN ASPART PER UNIT CHARGE SC SCH (21:37)
[2024-02-29] MEDS ORDERED: ALBUTEROL 0.083% NEBU SOLN 3 ML VIAL NEB SCH (22:00)
[2024-03-01] MEDS ORDERED: methylPREDNISolone 125 MG/2 ML VIAL IV SCH (01:30)
[2024-03-01 05:16] LABS: Albumin Globulin Ratio 1.7 (0.9-2); Albumin Level 3.7 gm/dl (3.4-5.0); Bilirubin,Total 0.2 mg/dl (0.2-1.0); Calcium 9.2 mg/dl (8.6-10.3); Creatinine Clr Calc Pharmacy 50.5 ml/min; Globulin 2.2 gm/dl (2.5-4.0); Magnesium 1.9 mg/dl (1.7-2.4); Phosphorus 2.8 mg/dl (2.5-4.9); Potassium 4.4 mmol/L (3.5-5.1); Total Protein 5.9 gm/dl (6.0-8.3)
[2024-03-01 05:44] LABS: Basophils # (auto) 0.01 K/uL (0.00-0.20); Basophils % (auto) 0.2 %; Hematocrit (blood only) 33.4 % (37.0-47.0); Hemoglobin 11.2 g/dl (12.0-16.0); Immature Granulocytes # (auto) 0.02 K/uL (0.01-0.20); Immature Granulocytes % (auto) 0.3 %; Lymphocytes # (auto) 0.67 K/uL (1.20-3.40); Lymphocytes % (auto) 10.7 %; Mean Corpuscular Hemoglobin 30.3 pg (25.0-34.0); Mean Corpuscular Hgb Conc 33.5 g/dL (32.0-36.0); Mean Corpuscular Volume 90.3 fL (80.0-100.0); Mean Platelet Volume 10.1 fL (9.4-12.4); Monocytes % (auto) 4.8 %; Neutrophils # (auto) 5.28 K/uL (1.40-6.50); Platelet Count 200 K/uL (130-400); RDW Coefficient of Variation 13.5 % (11.5-14.5); White Blood Count 6.28 K/ul (4.8-10.8)
--- NOTE | 2024-03-01 07:34 | Critical Care Progress Note ---
Date of Service March 01, 2024 Assessment & Plan (1) Anaphylaxis: Plan Impression: 73-year-old female admitted after shellfish ingestion with anaphylaxis/allergic reaction requiring epinephrine. She is stable currently. Recommendations: 1. Anaphylactic reaction. Patient was notified that she should get a medic alert bracelet indicating severe allergy to shellfish. Avoid iodine containing products in the future. She should get an EpiPen to go home with. I will place on prednisone 20 mg a day for 4 days to prevent a rebound and place her on p.o. Pepcid and Benadryl as well. Okay to advance out of the ICU. 2. IV fluids will be discontinued. Advancing diet. Out of bed to chair as tolerated 3. Mild anemia: No evidence of acute blood loss. Follow clinically at this point in time. Patient's critical care issues have resolved. Critical care will sign off. The patient can leave the ICU and ultimate disposition is deferred to the hospitalist. Feel free to contact us with questions or concerns Admission and Anticipated Discharge Date Admission Date: February 29, 2024 Subjective Patient seen and examined. EMR reviewed. Discussed on multidisciplinary rounds and with bedside critical care nurse. Patient feels better this morning. She is experiencing some mild throat fullness. Her voice is returning back to normal. She is swallowing. She has not required any additional epinephrine. No skin rashes lesions or itchiness. Overall she feels like she is returning back to baseline. Review of Systems Review of Systems: All systems reviewed & are unremarkable except as noted in Subjective Physical Exam Constitutional: WD/WN, vitals as above Neck: trachea midline, no thyromegaly Respiratory: normal respiratory effort, lungs clear to auscultation Cardiovascular: RRR, no murmur, no edema Gastrointestinal (Abdomen): normal bowel sounds, soft, nontender, no hepatosplenomegaly Musculoskeletal: Extremities: extremities normal to inspection Skin: no rashes, warm and dry Neurologic: Nonfocal exam Lymphatic: no cervical lymphadenopathy Results & Data Results & Data Vital Signs (Past 12 Hours) Vital Signs Temp Pulse Resp BP Pulse Ox O2 Del Method 03/01/24 06:00 68 104/55 L 99 Room Air 03/01/24 05:00 69 105/53 L 96 Room Air 03/01/24 04:00 69 108/58 L 94 Room Air 03/01/24 03:00 36.6 C 71 107/57 L 95 Room Air 10/30/24 02:00 77 101/62 98 Room Air 03/01/24 01:13 80 14 99 Room Air 03/01/24 01:00 77 105/61 97 Room Air 03/01/24 00:00 36.6 C 75 106/57 L 93 Room Air 02/29/24 23:00 83 95/58 L 92 Room Air 02/29/24 22:00 85 104/51 L 93 Room Air 02/29/24 21:00 91 H 109/57 L 98 Room Air 02/29/24 20:20 84 14 98 Room Air 02/29/24 20:00 88 16 122/70 98 Room Air Critical Care Results & Data Vital Signs (Past 12 Hours) Vital Signs Temp Pulse Resp BP Pulse Ox O2 Del Method 03/01/24 06:00 68 104/55 L 99 Room Air 03/01/24 05:00 69 105/53 L 96 Room Air 03/01/24 04:00 69 108/58 L 94 Room Air 03/01/24 03:00 36.6 C 71 107/57 L 95 Room Air 03/01/24 02:00 77 101/62 98 Room Air 03/01/24 01:13 80 14 99 Room Air 03/01/24 01:00 77 105/61 97 Room Air 03/01/24 00:00 36.6 C 75 106/57 L 93 Room Air 02/29/24 23:00 83 95/58 L 92 Room Air 02/29/24 22:00 85 104/51 L 93 Room Air 02/29/24 21:00 91 H 109/57 L 98 Room Air 02/29/24 20:20 84 14 98 Room Air 02/29/24 20:00 88 16 122/70 98 Room Air Lab & Micro Results (Past 24 Hours) RBC 3.70 M/uL (4.20-5.40) L 03/01/24 WBC 6.28 K/ul (4.8-10.8) 03/01/24 Hgb 11.2 g/dl (12.0-16.0) L 03/01/24 Hct 33.4 % (37.0-47.0) L 03/01/24 MCV 90.3 fL (80.0-100.0) 03/01/24 MCH 30.3 pg (25.0-34.0) 03/01/24 MCHC 33.5 g/dL (32.0-36.0) 03/01/24 RDW Standard Deviation 45.0 fL (36.4-46.3) 03/01/24 RDW Coefficient of Variation 13.5 % (11.5-14.5) 03/01/24 Plt Count 200 K/uL (130-400) 03/01/24 MPV 10.1 fL (9.4-12.4) 03/01/24 Neutrophils (%) (Auto) 84.0 % 03/01/24 Lymphocytes (%) (Auto) 10.7 % 03/01/24 Monocytes # (Auto) 0.30 K/uL (0.11-0.59) 03/01/24 Eosinophils # (Auto) 0.00 K/uL (0.00-0.50) 03/01/24 Immature Granulocyte % (Auto) 0.3 % 03/01/24 Neutrophils # (Auto) 5.28 K/uL (1.40-6.50) 03/01/24 Lymphocytes # (Auto) 0.67 K/uL (1.20-3.40) L 03/01/24 Monocytes # (Auto) 0.30 K/uL (0.11-0.59) 03/01/24 Eosinophils # (Auto) 0.00 K/uL (0.00-0.50) 03/01/24 Basophils # (Auto) 0.01 K/uL (0.00-0.20) 03/01/24 Immature Granulocyte # (Auto) 0.02 K/uL (0.01-0.20) 4 ANC 4.11 K/uL (1.4-6.5) 02/29/24 ALC 4.68 K/uL (1.2-3.4) H 02/29/24 Neutrophils % (Manual) 43 % 02/29/24 Lymphocytes % (Manual) 49 % 02/29/24 Monocytes % (Manual) 6 % 02/29/24 Eosinophils % (Manual) 1 % 02/29/24 Basophils % (Manual) 1 % 02/29/24 Neutrophils # (Manual) 4.11 K/uL (1.40-6.50) 02/29/24 Lymphocytes # (Manual) 4.68 K/uL (1.2-3.4) H 02/29/24 Monocytes # (Manual) 0.57 K/uL (0.11-0.59) 02/29/24 Eosinophils # (Manual) 0.10 K/uL (0-0.50) 02/29/24 Basophils # (Manual) 0.10 K/uL (0-0.2) 02/29/24 Red Blood Cell Morphology Unremarkable 02/29/24 Na 140 mmol/L (136-145) 03/01/24 K 4.4 mmol/L (3.5-5.1) 03/01/24 Cl 110 mmol/L (98-107) H 03/01/24 CO2 23 mmol/L (21-32) 03/01/24 Anion Gap 7 (3-11) 03/01/24 BUN 35 mg/dl (6-23) H 03/01/24 Creatinine 0.92 mg/dl (0.6-1.2) 03/01/24 BUN/Creatinine Ratio 38.0 (10-20) H 03/01/24 Glu 166 mg/dl (70-99(Fasting)) H 03/01/24 Ca 9.2 mg/dl (8.6-10.3) 03/01/24 Phosphorus Level 2.8 mg/dl (2.5-4.9) 03/01/24 Total Bilirubin 0.2 mg/dl (0.2-1.0) 03/01/24 AST 19 U/L (13-39) 03/01/24 ALT 13 U/L (7-52) 03/01/24 Alkaline Phosphatase 39 U/L (34-104) 03/01/24 TP 5.9 gm/dl (6.0-8.3) L 03/01/24 Albumin 3.7 gm/dl (3.4-5.0) 03/01/24 Globulin 2.2 gm/dl (2.5-4.0) L 03/01/24 Albumin/Globulin Ratio 1.7 (0.9-2) 03/01/24 Mg 1.9 mg/dl (1.7-2.4) 03/01/24 04:17 Calcium Level 9.2 mg/dl (8.6-10.3) 03/01/24 04:17 Diagnostic Findings (Past 24 Hours) Chest X-Ray 02/29/24 16:34 XR chest 1V portable CLINICAL HISTORY: Chest pain, nonspecific TECHNIQUE: Single frontal radiograph of the chest was obtained. Comparison: None available at the time of this dictation. FINDINGS: No lines and tubes are seen. Calcified aortic knob is seen. The lungs are clear. No evidence of pleural effusion or pneumothorax. IMPRESSION: No acute chest disease. ACT 112: Negative or not required by law. Electronically signed by: Channing Arriaza M.D. 02/29/2024 5:06 PM I & O Totals 24 Hours 02/29/24 03/01/24 03/02/24 06:59 06:59 06:59 Intake Total 989.932 / 989.932 Balance 989.932 / 989.932 Cumulative 02/29/24 16:19 thru 03/01/24 06:00 Intake Total 989.932 Balance 989.932 RT Ventilator Mngmt (Last Documented) Ventilator Ordered Settings Respiratory Rate 14 03/01/24 01:13 Ventilator - PT Measurements Respiratory Rate 14 Coding Level of Care Code 31566 SUB INP/OBS CARE 2/35MIN Diagnoses Anaphylaxis T78.2XXA Encounter type: initial encounter (1) Anaphylaxis Encounter type: initial encounter Qualified Code(s): T78.2XXA - Anaphylactic shock, unspecified, initial encounter
[2024-03-01] MEDS ORDERED: NON-FORMULARY MEDICATION (Coenzyme Q10 [Co Q-10] 100 mg Capsule) PO SCH (09:00)
[2024-03-01] MEDS: CITALOPRAM 20 MG TAB PO SCH (09:26)
[2024-03-01] MEDS: CHOLECALCIFEROL 25 MCG (1000 UNITS) TAB PO SCH (09:26)
[2024-03-01] MEDS: MULTIVITAMIN TAB PO SCH (09:26)
[2024-03-01] MEDS: predniSONE 20 MG TAB PO SCH (09:27)
[2024-03-01] MEDS: FAMOTIDINE 20 MG TAB PO SCH (09:27)
[2024-03-01] MEDS: diphenhydrAMINE Capsule 25 MG CAP PO SCH (09:27)
--- NOTE | 2024-03-01 11:44 | Electrocardiogram Report ---
Test Reason : Blood Pressure : */* mmHG Vent. Rate : 99 BPM Atrial Rate : 99 BPM P-R Int : 140 ms QRS Dur : 96 ms QT Int : 372 ms P-R-T Axes : 44 -36 27 degrees QTcB Int : 477 ms Normal sinus rhythm Left axis deviation Abnormal ECG No previous ECGs available Confirmed by Jeremy Bradshaw ([id number]) on 03/01/2024 11:43:41 AM Referred By: REFERRED SELF Confirmed By: Jeremy Bradshaw
--- NOTE | 2024-03-01 12:20 | Hospitalist Progress Note ---
Date of Service March 01, 2024 Assessment & Plan (1) Anaphylaxis: Plan 73-year-old lady with PMH of AR, CLL, HLD, depression, hemorrhoids presented to the ED 02/28 after having anaphylactic reaction following 10 minutes of having oyster dish at dinner at a restaurant. Patient denies any prior history of anaphylactic reaction but does have a history of allergic reactions. She is being managed for the following: Anaphylactic reaction to food/oyster Patient admitted with throat swelling, swelling of the whole face and difficulty with breathing. Status post multiple IM epinephrine doses and epinephrine drip in the ICU. Now has significant improvement in her breathing, still complains of some difficulty swallowing, reports feeling better. Continue with prednisone, Pepcid and Benadryl. She will need EpiPen on discharge, she will need to follow-up with machine wedger on discharge. Patient has been made aware. Patient has been made aware to keep EpiPen at hand all the time. She voiced understanding. Mild anemia: Admitting hemoglobin of 14.3, hemoglobin today 11.2, likely chronic anemia. Patient received IV fluid resuscitation since presentation. Will send iron profile and vitamin B12 and folate level. No labs in outpatient [facility] EMR review, patient not aware of her baseline hemoglobin. Patient does complain of on and off trace red blood in her wipes and perianal itching sensation. Patient does have a history of hemorrhoids and has had colonoscopy 2 years ago, patient to follow-up with his GI physician for colonoscopy every 5 years. Will monitor H&H and make sure it does not drop any further. Utilize anusol cream. Other chronic medical conditions: Depression/HLD/sleep apnea: Continue home statin and Celexa. Patient does not use any CPAP and BPAP. DVT prophylaxis: Subcu heparin CODE STATUS: Full code Admission and Anticipated Discharge Date Admission Date: February 29, 2024 Subjective Patient was seen and examined at bedside. Patient was lying in bed, on room air, NAD, resting comfortably. Patient reports significant improvement in her breathing, reports he still has some difficulty swallowing but has improved since yesterday, reports moving bowels okay. Patient reports intermittent blood in wipes, reports has history of hemorrhoids, last colonoscopy was 2 years ago per patient which showed hemorrhoid and precancerous polyp, patient has been advised to follow-up every 5 years for colonoscopy. Will try Anusol cream to give symptomatic relief with itching that she has been complaining of more so recently. Physical Exam Physical Exam: GENERAL: Alert and oriented x3. NAD, on RA. HEENT: No pallor, no icterus. Pupils equal, round and reactive to light. Oral mucosa moist. NECK: No JVD, no neck masses. HEART: S1 and S2 heard. Regular rate and rhythm. No murmur, no gallop. RESPIRATORY SYSTEM: Normal AP diameter. No accessory muscle use. No wheezing, no crackles. ABDOMEN: Soft, bowel sounds present, nontender, no distention. CENTRAL NERVOUS SYSTEM: No facial droop. Speech is clear. Obeys simple commands. Moves extremities. EXTREMITIES: No edema, no erythema seen. Results & Data Results & Data Vital Signs (Past 12 Hours) Vital Signs Temp Pulse Pulse Resp BP Pulse Ox O2 Del Method 03/01/24 08:00 36.9 C 03/01/24 08:00 82 16 122/65 97 Room Air 03/01/24 07:52 Room Air 03/01/24 07:52 70 03/01/24 07:34 77 20 97 Room Air 03/01/24 07:00 36.4 C L 81 16 111/57 L 97 Room Air, Nebulizer 03/01/24 06:00 68 104/55 L 99 Room Air 03/01/24 05:00 69 105/53 L 96 Room Air 03/01/24 04:00 69 108/58 L 94 Room Air 03/01/24 03:00 36.6 C 71 107/57 L 95 Room Air 03/01/24 02:00 77 101/62 98 Room Air 03/01/24 01:13 80 14 99 Room Air 03/01/24 01:00 77 105/61 97 Room Air (1) Anaphylaxis Encounter type: initial encounter Qualified Code(s): T78.2XXA - Anaphylactic shock, unspecified, initial encounter
[2024-03-01] MEDS: HYDROCORTISONE ACETATE 25 MG SUPP PR SCH (13:36)
[2024-03-01 13:51] LABS: Folate (Folic Acid),Ser orPlas 17.7 ng/ml (>5.38)
[2024-03-02 07:08] VITALS: TEMP 97.9
[2024-03-02 07:27] LABS: Hematocrit (blood only) 37.7 % (37.0-47.0); Hemoglobin 12.4 g/dl (12.0-16.0); Mean Corpuscular Hemoglobin 30.5 pg (25.0-34.0); Mean Corpuscular Hgb Conc 32.9 g/dL (32.0-36.0); Mean Corpuscular Volume 92.9 fL (80.0-100.0); Mean Platelet Volume 9.9 fL (9.4-12.4); Platelet Count 190 K/uL (130-400); RDW Standard Deviation 48.1 fL (36.4-46.3); Red Blood Count 4.06 M/uL (4.20-5.40); White Blood Count 7.58 K/ul (4.8-10.8)
[2024-03-02 07:42] LABS: BUN Creatinine Ratio 29.9 (10-20); Calcium 9.5 mg/dl (8.6-10.3); Creatinine Clr Calc Pharmacy 46.9 ml/min; Magnesium 1.9 mg/dl (1.7-2.4); Phosphorus 3.3 mg/dl (2.5-4.9); Potassium 4.1 mmol/L (3.5-5.1)
[2024-03-02 11:03] VITALS: PULSE 65; RESP 19; O2SAT 99
[2024-03-02] MEDS ORDERED: ALBUTEROL 0.083% NEBU SOLN 3 ML VIAL NEB PRN (11:32)
--- NOTE | 2024-03-02 12:23 | Discharge Summary ---
Date of Service March 02, 2024 Admission HPI Per Admitting Provider She is a 73-year-old female with significant past medical history of aortic regurgitation, CLL, hyperlipidemia and depression apparently was having supper at the [facility] this evening. She had an Oyster dish and following 10 minutes of having the Oyster she started to feel swelling in the back of her throat, she tried to drink water without any relief. Axilla within 10 minutes the condition got worse and was associated with generalized hives with itchiness and more swelling in the throat and swelling of the whole of the face and that extended it was hard for her to breath. 911 was called and she was brought into the emergency room. On the way she received IM epinephrine x 2, intravenous Solu-Medrol 125 mg each and and also nebulized bronchodilatos. In the ER she was still edematous and short of breath and she required additional doses of IM epinephrine and started with intravenous infusion of epinephrine and 0.1 mg. She received 10 IV Decadron of 10 mg and also received famotidine and Benadryl intravenously. When I saw her condition is improving and she was talking normally did have minimal proximal swelling but no shortness of breath at rest and are swelling of the face has been improving. Her generalized hives and itchiness have improved as well. He remained hemodynamically stable and will be admitted to ICU for observation. Admission Exam Per Admitting Provider Physical Exam: Lying in bed without any apparent distress but looks anxious Constitutional: well developed, well nourished and + ill appearing Eyes: Eyelids that is still swollen but can open the eyes without any problem Neck: trachea midline, no thyromegaly Respiratory: no respiratory distress Auscultation: + diminished lung sounds and + wheezes (Minimal to no wheezing) Cardiovascular: Rate/Rhythm: regular rate, regular rhythm and + tachycardic Heart Sounds: normal S1, normal S2 and + murmur Extremities: no edema Gastrointestinal (Abdomen): Inspection/Auscultation: normal bowel sounds; abdomen not distended Percussion/Palpation: abdomen soft; abdomen nontender Musculoskeletal: No acute arthritis involving any of the joint Skin: Minimal redness involving the upper extremities and trunk but no definite hives Neurologic: normal touch/pain/proprioception and moves all extremities; no focal motor deficits Lymphatic: no cervical or axillary lymphadenopathy Principal Diagnosis Anaphylactic reaction to food/oyster Mild anemia Discharge Exam GENERAL: Alert and oriented x3. NAD, on RA. HEENT: No pallor, no icterus. Pupils equal, round and reactive to light. Oral mucosa moist. NECK: No JVD, no neck masses. HEART: S1 and S2 heard. Regular rate and rhythm. No murmur, no gallop. RESPIRATORY SYSTEM: Normal AP diameter. No accessory muscle use. No wheezing, no crackles. ABDOMEN: Soft, bowel sounds present, nontender, no distention. CENTRAL NERVOUS SYSTEM: No facial droop. Speech is clear. Obeys simple commands. Moves extremities. EXTREMITIES: No edema, no erythema seen. Discharge Data Allergies Allergy/AdvReac Type Severity Reaction Status Date / Time oyster extract Allergy Severe Anaphylaxis Verified 02/29/24 17:25 dicyclomine AdvReac Unknown Abdominal Verified 02/29/24 17:25 Pain minocycline AdvReac Unknown Headache Verified 02/29/24 17:25 omeprazole [From Prilosec] AdvReac Unknown Unknown Verified 02/29/24 17:25 venlafaxine [From Effexor] AdvReac Unknown Palpitation Verified 02/29/24 18:13 s Consultations 02/29/24 18:03 ED Decision to Admit Stat 02/29/24 18:17 Consult Coffee Shop Aide Routine Hospital Course (1) Anaphylaxis: Plan 73-year-old lady with PMH of AR, CLL, HLD, depression, hemorrhoids presented to the ED 02/28 after having anaphylactic reaction following 10 minutes of having oyster dish at dinner at a restaurant. Patient denies any prior history of anaphylactic reaction but does have a history of allergic reactions. She was managed for the following: Anaphylactic reaction to food/oyster Patient admitted with throat swelling, swelling of the whole face and difficulty with breathing. Status post multiple IM epinephrine doses and epinephrine drip in the ICU. patient with no problem with breathing, reports significant improvement in her swallowing difficulty. Continue with prednisone, Pepcid and Benadryl For 3 to 5 days upon discharge. She will need EpiPen on discharge, she will need to follow-up with beam dyer recessed vat on discharge. Patient has been made aware. Prescription has been sent. Patient has been made aware to keep EpiPen at hand all the time. She voiced understanding. Mild anemia: Admitting hemoglobin of 14.3, hemoglobin today 11.2, likely chronic anemia. Patient received IV fluid resuscitation since presentation. Will send iron profile and vitamin B12 and folate level. No labs in outpatient [facility] EMR review, patient not aware of her baseline hemoglobin. Patient does complain of on and off trace red blood in her wipes and perianal itching sensation. Patient does have a history of hemorrhoids and has had colonoscopy 2 years ago, patient to follow-up with his GI physician for colonoscopy every 5 years. H&H has been stable.. Utilize anusol cream. Patient mentions she has upcoming GI phy sician visit in March, patient advised to keep the appointment. Other chronic medical conditions: Depression/HLD/sleep apnea: Continue home statin and Celexa. Patient does not use any CPAP and BPAP. DVT prophylaxis: Subcu heparin CODE STATUS: Full code Patient is being discharged home with following instruction at the point of discharge: Follow-up with your primary care physician within a week time and likely you will need labs CBC/CMP/magnesium/phosphorus. You are admitted for anaphylactic reaction to food/oyster, avoid allergens in future. As discussed at the bedside, you will need evaluation by beam dyer recessed vat in 1 to 2 weeks time upon discharge, coordinate with your PCP office to set up the referral. Also you will need EpiPen at hand all the time, EpiPen use instruction can be found below. Also for your mild anemia, in the setting of intermittent hemorrhoidal bleed per your description, maintain follow-up with your GI physician that has already been scheduled in March (as you mentioned). You will be discharged on iron supplement as discussed at the bedside. Take your medications as prescribed. In the setting of an allergic reaction, patients should use epinephrine immediatelyif they: Are having trouble breathing Feel tightness in the throat Feel lightheaded or think they might pass out Once you use EpiPen, call 911 immediately and get hold of another EpiPen as soon as possible. You might need second dose of EpiPen in 5 to 15 minutes after the first dose if symptoms do not appear to be stabilizing or improving. Make note to replace the devices prior to expiration. Please make sure that you are able to get your medications today by calling your pharmacy before you leave the hospital so that your treatment continuity is not broken. Home Health Attestation I certify that this patient is under my care and that I, or a physicians respiratory therapist assistant working with me, had a face to-face encounter that meets the home health [id number] encounter requirements with this patient. The encounter with the patient was in whole, or in part, for the following medical condition, which is the primary reason for home health care (list medical condition): I certify that, based on my findings, the following services are medically necessary home health services: My clinical findings support the need for the above services because: Further, I certify that my clinical findings support that this patient is homebound (i.e. absences from home require considerable and taxing effort and are for medical reasons or rastafari services or infrequently or of short duration when for other reasons) because: Certification for Home Health Services: Based on the above findings, I certify that this patient is confined to the home and needs intermittent [facility]p care, physical therapy and/or speech therapy or continues to need occupational therapy. The patient is under my care, and I have initiated the establishment of the plan of care. This patient will be followed by a physician who will periodically review the plan of care. Total Time Total Time Spent Total Time Spent (In Minutes): 45 Discharge Plan Discharge Items Patient Disposition: Home - Self-Care Reason For Visit: ANAPHYLAXIS Discharge Diagnosis: Anaphylactic reaction to food/oyster Mild anemia Activity: Resume your previous activity Non-emergency contact: Primary Care Provider Call non-emergency contact if: you have any medication questions and your symptoms worsen Follow-up/Referrals: Timothy Han MD [Primary Care Provider] - 03/06/24 2:00 pm Diet: Heart Healthy Addtl Attending Provider Instructions: Follow-up with your primary care physician within a week time and likely you will need labs CBC/CMP/magnesium/phosphorus. You are admitted for anaphylactic reaction to food/oyster, avoid allergens in future. As discussed at the bedside, you will need evaluation by beam dyer recessed vat in 1 to 2 weeks time upon discharge, coordinate with your PCP office to set up the referral. Also you will need EpiPen at hand all the time, EpiPen use instruction can be found below. Also for your mild anemia, in the setting of intermittent hemorrhoidal bleed per your description, maintain follow-up with your GI physician that has already been scheduled in March (as you mentioned). You will be discharged on iron supplement as discussed at the bedside. Take your medications as prescribed. In the setting of an allergic reaction, patients should use epinephrineimmedi atelyif they: Are having trouble breathing Feel tightness in the throat Feel lightheaded or think they might pass out Once you use EpiPen, call 911 immediately and get hold of another EpiPen as soon as possible. You might need second dose of EpiPen in 5 to 15 minutes after the first dose if symptoms do not appear to be stabilizing or improving. Make note to replace the devices prior to expiration. Please make sure that you are able to get your medications today by calling your pharmacy before you leave the hospital so that your treatment continuity is not broken. Pending Studies at Discharge: No Stand-Alone Forms: My [facility] [email or web address], Smoking Cessation Medications and DC Order Prescriptions: New diphenhydramine HCl [Benadryl] 25 mg Capsule 25 mg PO BID 5 Days Qty: 10 0RF epinephrine [EpiPen 2-Melchor] 0.3 mg/0.3 mL auto-injector 0.3 mg IM UD PRN (Reason: anaphylaxis) Qty: 2 0RF famotidine 20 mg Tablet 20 mg PO BID 5 Days Qty: 10 0RF prednisone 20 mg Tablet 20 mg PO DAILY 3 Days Qty: 3 0RF hydrocortisone acetate [Anucort-HC] 25 mg Suppository 25 mg LA BID 7 Days Qty: 14 0RF ferrous sulfate 325 mg (65 mg iron) tablet 325 mg PO DAILY Qty: 30 0RF Continued citalopram 20 mg tablet 20 mg PO DAILY simvastatin 20 mg tablet 20 mg PO HS metformin 500 mg tablet extended release 24 hr 500 mg PO DAILY gabapentin 100 mg Capsule 100 mg PO HS multivitamin [Multiple Vitamins] Tablet 1 tab PO DAILY gabapentin 100 mg capsule 100 mg PO HS coenzyme Q10 [Co Q-10] 100 mg Capsule 100 mg PO DAILY cholecalciferol (vitamin D3) [Vitamin D3] 50 mcg (2,000 unit) Tablet 50 mcg PO DAILY cholecalciferol (vitamin D3) [Vitamin D3] 50 mcg (2,000 unit) Tablet 50 mcg PO DAILY coQ10 (ubiquinol) 200 mg Capsule 200 mg PO DAILY Antioxidant Supplement Tablet 1 tab PO HS multivitamin Tablet 1 tab PO DAILY Discharge Orders: Discharge Order (Routine); Ordered 03/02/24 Ordered By: Lacho Conklin Admission Data Admit Date/Time: 02/29/24 18:17 Attending Provider: Lacho Conklin Admit Provider: Chasity Hua Primary Care Provider: Timothy Han Other Providers: Chasity Hua; Alejandro Alcaraz
[2024-03-02 13:07] VITALS: BP 147/78
== END 2024-03-02 13:50 | disposition home or self-care (01) | DRG 916 ==
LOC: ED 16:27 → 1E 18:17 → SUATTDRO 18:17 → 1E 19:13 → 2S 03-01 15:45